=== PATIENT | female | born 2000 | race Caucasian/White ===

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

== ENCOUNTER 2022-11-04 18:30 | Emergency (ER) | payer OTHER ==
[~2022-11-04] VITALS: Ht 170.2 cm; Wt 136.4 kg
[2022-11-04] MEDS ORDERED: LOPERAMIDE HCL 2 MG CAPSULE PO ONE (19:15)
[2022-11-04] MEDS ORDERED: SODIUM CHLORIDE 0.9% 1,000 ML IV ONE ×2 (19:15→21:00)
[2022-11-04] MEDS ORDERED: ONDANSETRON HCL 4 MG/2 ML VIAL IVP ONE (19:15)
[2022-11-04 20:01] LABS: BASOPHILS % (AUTO) 0.2 % (0.0-2.0); EOSINOPHILS % (AUTO) 0.2 % (1.0-6.0); HEMATOCRIT 43.8 % (36-46); HEMOGLOBIN 14.1 g/dL (12.0-16.0); LYMPHOCYTES # (AUTO) 0.6 K/uL (1.0-4.8); LYMPHOCYTES % (AUTO) 4.1 % (22.0-44.0); MEAN CORPUSCULAR HEMOGLOBIN 24.9 pg (26.0-34.0); MEAN CORPUSCULAR HGB CONC 32.2 G/dL (31.0-37.0); MEAN CORPUSCULAR VOLUME 77 fL (80-100); MONOCYTES # (AUTO) 0.5 K/uL (0.1-1.0); MONOCYTES % (AUTO) 3.7 % (2.0-9.0); NEUTROPHILS # (AUTO) 12.4 K/uL (1.8-7.7); PLATELET COUNT (AUTO) 178 K/uL (150-450); RED BLOOD CELL COUNT(AUTO) 5.67 MIL/uL (4.00-5.20); RED CELL DISTRIBUTION WIDTH 15.9 % (11.5-14.5)
[2022-11-04 20:02] LABS: NEUTROPHILS % (AUTO) 91.8 % (40.0-70.0)
[2022-11-04 20:11] LABS: ANION GAP 12 mmol/L (8-16); CALCIUM, TOTAL 9.3 mg/dL (8.8-10.5); CARBON DIOXIDE 26 mmol/L (22-29); CHLORIDE 99 mmol/L (98-107); CREATININE 0.86 mg/dL (0.60-1.30); GLOMERULAR FILTR. RATE CALC > 60 mL/min (>60); GLUCOSE,RANDOM 131 mg/dL (70-110); POTASSIUM 3.9 mmol/L (3.5-5.1); SODIUM SERUM 137 mmol/L (136-145); UREA NITROGEN, BLOOD 12 mg/dL (7-18)
[2022-11-04 20:22] LABS: ALANINE AMINOTRANSFERASE 35 U/L (12-78); ALKALINE PHOSPHATASE 108 U/L (46-116); ASPARTATE AMINOTRANSFERASE 19 U/L (15-37); BILIRUBIN,TOTAL 0.4 mg/dL (0.1-1.0); HCG,QUANTITATIVE 1 mIU/mL (0-6); LIPASE 39 U/L (73-393); TOTAL PROTEIN, SERUM 9.3 g/dL (6.4-8.2)
[2022-11-04 20:36] LABS: PLATELET MORPHOLOGY COMMENT LARGE PLTS PRESENT
[2022-11-04] MEDS ORDERED: ONDA-104 PO (20:40)
[2022-11-04] MEDS ORDERED: LOPE-232 PO (20:40)
[2022-11-04] MEDS ORDERED: ACETAMINOPHEN 500 MG TABLET PO ONE (21:00)
[2022-11-05 00:44] VITALS: BP 128/70
== END 2022-11-05 00:57 | disposition home or self-care (01) ==
LOC: EMS 18:33
DX: K52.9 Noninfective gastroenteritis and colitis, unspecified (principal); J45.909 Unspecified asthma, uncomplicated; F12.90 Cannabis use, unspecified, uncomplicated; Z90.49 Acquired absence of other specified parts of digestive tract
CPT/HCPCS: 99283; 96374; 96361; 80053; 83690; 84702; 85025; 36415; J2405; J7030

== ENCOUNTER 2023-04-27 17:25 | Emergency (ER) | payer OTHER ==
[~2023-04-27] VITALS: Ht 170.2 cm; Wt 127.3 kg
[~2023-04-27 17:25] MED LIST: LOPE-232 PO; ONDA-104 PO
[2023-04-27 17:33] VITALS: TEMP 97.8
[2023-04-27] MEDS ORDERED: CYCL10TA16 PO (17:54)
[2023-04-27] MEDS ORDERED: IBUP-2076 PO (17:54)
[2023-04-27] MEDS ORDERED: KETOROLAC TROMETHAMINE 30 MG/ML VIAL IM ONE (19:15)
[2023-04-27] MEDS ORDERED: TraMADol HCL 50 MG TABLET PO ONE (19:15)
[2023-04-27] MEDS ORDERED: LIDO1ADH63 TP (20:50)
[2023-04-27 21:05] VITALS: BP 112/66; PULSE 90; RESP 16
== END 2023-04-27 21:06 | disposition home or self-care (01) ==
LOC: EMS 17:26
DX: M46.1 Sacroiliitis, not elsewhere classified (principal)
CPT/HCPCS: 99283; 72202; 81025; 96372; J1885

== ENCOUNTER 2024-01-24 11:49 | Emergency (ER) | payer BC, MEDICAID ==
[~2024-01-24] VITALS: Ht 175.3 cm; Wt 138.0 kg
[~2024-01-24 11:49] MED LIST changes: +CYCL10TA16 PO; +IBUP-2076 PO; +LIDO1ADH63 TP; -LOPE-232 PO; -ONDA-104 PO
[2024-01-24 11:53] VITALS: BP 142/70; PULSE 88; RESP 16; TEMP 98.3
== END 2024-01-24 13:50 | disposition home or self-care (01) ==
LOC: EMS 11:49
DX: O20.0 Threatened abortion (principal); Z3A.01 Less than 8 weeks gestation of pregnancy
CPT/HCPCS: 99281; Z7502